=== PATIENT | female | born 1930 | race Caucasian/White ===

== ENCOUNTER 2017-01-28 12:11 | Inpatient (IN) | payer MEDICARE, OTHER ==
[2017-01-28] MEDS ORDERED: Ondansetron 4 MG/2 ML SDV IV PRN (13:08)
[2017-01-28] MEDS ORDERED: Acetaminophen 325 MG Tab PO PRN (13:08)
[2017-01-28] MEDS ORDERED: Pantoprazole 40 MG in Sodium Chloride 0.9% 100 ML IV SCH (13:15)
[2017-01-28] MEDS: Sodium Chloride 0.9% 1,000 ML IV SCH (14:37)
[2017-01-28] MEDS: Pantoprazole 40 MG Vial IVPUSH SCH (14:47)
--- NOTE | 2017-01-28 15:58 | PCM.SN ---
- Free Text/Narrative Note: Full consult dictated. plan egd in am.
[2017-01-28] MEDS ORDERED: Acetaminophen 650 MG Tab.ER PO PRN (16:53)
[2017-01-28] MEDS ORDERED: ALPRAZolam 0.25 MG Tab PO PRN (16:53)
--- NOTE | 2017-01-28 16:56 | PCM.HP ---
H&P History of Present Illness - General Date of Service: 01/28/17 Admit Problem/Dx: Admission Diagnosis/Problem Admission Diagnosis/Problem Gastrointestinal hemorrhage Source of Information: Patient, Old Records History Limitations: Reports: No Limitations - History of Present Illness Initial Comments - Free Text/Narative: [id number] female admitted for melena stools. She complains that she seen black stools for about 10 days but today it was bright red mixed with the black stools. Denies feeling weak having chest pain or shortness of breath. She has a history of H. pylori gastritis, upper GI endoscopy in 2013. She had a colonoscopy in 2008, I do not have the results. She denies abdominal pain. She has chronic disease and takes aspirin. She has hypertension stable restless leg syndrome endings at both stable. - Related Data Allergies/Adverse Reactions: Allergies Allergy/AdvReac Type Severity Reaction Status Date / Time Sulfa (Sulfonamide Allergy Nausea and Verified 01/28/17 14:04 Antibiotics) Vomiting cholesterol pill Allergy Muscle Uncoded 08/16/13 07:57 Aches Home Medications: Home Meds ALPRAZolam [Alprazolam] 0.25 mg PO BEDTIME PRN 08/16/13 [History] Acetaminophen [Tylenol Arthritis Pain] 650 mg PO BID PRN 08/16/13 [History] Aspirin [Low Dose Aspirin EC] 81 mg PO DAILY 08/16/13 [History] Losartan [Cozaar] 50 mg PO BID 08/16/13 [History] Oxybutynin 5 mg PO BEDTIME 08/16/13 [History] Propranolol [Inderal LA 24 Hr] 80 mg PO DAILY 08/16/13 [History] Psyllium Seed/Aspartame [Metamucil Powder] 17 gm PO DAILY PRN 08/16/13 [History] Ranitidine [Zantac] 150 mg PO BID 01/28/17 [History] Past Medical History Cardiovascular History: Reports: Bypass, High Cholesterol, Hypertension Other Cardiovascular History: Bypass 1999 Gastrointestinal History: Reports: GERD Genitourinary History: Reports: Urinary Incontinence [employer] History: Reports: Musculoskeletal History: Reports: Arthritis, Other (See Below) Other Musculoskeletal History: Arthritis in knees, suppose to have surgery sometime. Oncologic (Cancer) History: Reports: Breast, Other (See Below) Other Oncologic History: Treated with radiation only. - Infectious Disease History Infectious Disease History: Reports: Other (See Below) Other Infectious Disease History: States she doesn't exactly recall what childhood diseases she had. Denies having had shingles. - Past Surgical History HEENT Surgical History: Reports: Cataract Surgery GI Surgical History: Reports: Appendectomy, Cholecystectomy, Colonoscopy, EGD Female Surgical History: Reports: Hysterectomy Social & Family History - Tobacco Use Smoking Status *Q: Never Smoker Second Hand Smoke Exposure: No - Caffeine Use Caffeine Use: Reports: Tea Other Caffeine Use: States she seldom drinks caffeine. Drinks de-caf coffee and tea on occasion. - Alcohol Use Days Per Week of Alcohol Use: 0 - Recreational Drug Use Recreational Drug Use: No H&P Review of Systems - Review of Systems: Review Of Systems: ROS reveals no pertinent complaints other than HPI. Exam - Exam Exam: See Below - Vital Signs Vital Signs: Last Vital Signs Temp 97.5 F 01/28/17 16:40 Pulse 69 01/28/17 16:40 Resp 20 01/28/17 16:40 BP 143/53 H 01/28/17 16:40 Pulse Ox 99 01/28/17 13:30 Weight: 75.841 kg - Exam General: Alert, Oriented, 4 HEENT: PERRLA, Hearing Intact, Mucosa Moist & [place], Nares Patent, Normal Nasal Septum, Posterior Pharynx Clear, Conjunctiva Clear, EOMI, EACs Clear, TMs Clear Neck: Supple, Trachea Midline, 2 Lungs: Clear to Auscultation, Normal Respiratory Effort Cardiovascular: Regular Rate, Systolic Murmur GI/Abdominal Exam: Normal Bowel Sounds, Soft, Non-Tender, No Organomegaly, No Distention, No Abnormal Bruit, No Mass, Pelvis Stable (Female) Exam: Deferred Rectal (Female) Exam: Deferred Back Exam: Normal Inspection, Full Range of Motion, NT Extremities: Normal Inspection, Normal Range of Motion, Non-Tender, No Pedal Edema, Normal Capillary Refill Skin: Warm, Dry, Intact Neurological: Cranial Nerves Intact, Reflexes Equal Bilateral Neuro Extensive - Mental Status: Alert, Oriented x3, Normal Mood/Affect, Normal Cognition Neuro Extensive - Motor, Sensory, Reflexes: CN II-XII Intact, Normal Gait, Normal Reflexes Psychiatric: Alert, Normal Affect, Normal Mood - Patient Data Lab Results Last 24 hrs: Laboratory Results - last 24 hr 01/28/17 01/28/1717 Range/Units 13:30 13:30 14:55 Hgb 7.0 L D (11.5-15.5) g/dL Hct 20.8 L* D (30.0-51.3) % PT 11.0 (8.7-11.1) INR 1.09 (0.89-1.13) Sodium 143 (135-145) mmol/L Potassium 3.7 (3.5-5.3) mmol/L Chloride 109 (100-110) mmol/L Carbon Dioxide 29 (21-32) mmol/L BUN 25 H (7-18) mg/dL Creatinine 0.8 (0.55-1.02) mg/dL Est Cr Clr Drug Dosing TNP Estimated GFR (MDRD) > 60 (>60) BUN/Creatinine Ratio 31.3 H (9-20) Glucose 160 H (80-116) mg/dL Calcium 8.2 L (8.6-10.2) mg/dL Total Bilirubin 0.2 (0.1-1.3) mg/dL AST 12 (5-25) IU/L ALT 15 (12-36) U/L Alkaline Phosphatase 55 L (56-112) IU/L Total Protein 6.2 (6.0-8.0) g/dL Albumin 3.1 L (3.2-4.6) g/dL Globulin 3.1 g/dL Albumin/Globulin Ratio 1.0 Blood Type Gel Antibody Screen Crossmatch 01/28/17 Range/Units 14:55 Hgb (11.5-15.5) g/dL Hct (30.0-51.3) % PT (8.7-11.1) INR (0.89-1.13) Sodium (135-145) mmol/L Potassium (3.5-5.3) mmol/L Chloride (100-110) mmol/L Carbon Dioxide (21-32) mmol/L BUN (7-18) mg/dL Creatinine (0.55-1.02) mg/dL Est Cr Clr Drug Dosing Estimated GFR (MDRD) (>60) BUN/Creatinine Ratio (9-20) Glucose (80-116) mg/dL Calcium (8.6-10.2) mg/dL Total Bilirubin (0.1-1.3) mg/dL AST (5-25) IU/L ALT (12-36) U/L Alkaline Phosphatase (56-112) IU/L Total Protein (6.0-8.0) g/dL Albumin (3.2-4.6) g/dL Globulin g/dL Albumin/Globulin Ratio Blood Type B POSITIVE Gel Antibody Screen Negative Crossmatch See Detail Result Diagrams: 01/29/17 05:12 01/29/17 05:12 *Q Meaningful Use (ADM) - VTE *Q VTE Criteria *Q: - Stroke *Q Stroke Criteria *Q: - AMI *Q AMI Criteria *Q: - Problem List (1) GERD (gastroesophageal reflux disease) SNOMED Code(s): 370927206 ICD Code: K21.9 - GASTRO-ESOPHAGEAL REFLUX DISEASE WITHOUT ESOPHAGITIS Status: Acute Current Visit: Yes Qualifiers: Esophagitis presence: esophagitis presence not specified Qualified Code(s) : K21.9 - Gastro-esophageal reflux disease without esophagitis (2) BRBPR (bright red blood per rectum) SNOMED Code(s): 867367086 ICD Code: K62.5 - HEMORRHAGE OF ANUS AND RECTUM Status: Acute Current Visit: Yes (3) Anemia SNOMED Code(s): 887553602 ICD Code: D64.9 - ANEMIA, UNSPECIFIED Status: Acute Current Visit: Yes Qualifiers: Anemia type: iron deficiency Iron deficiency anemia type: unspecified iron deficiency Qualified Code(s): D50.9 - Iron deficiency anemia, unspecified (4) HTN (hypertension) SNOMED Code(s): 43681420 ICD Code: I10 - ESSENTIAL (PRIMARY) HYPERTENSION Status: Chronic Current Visit: Yes Qualifiers: Hypertension type: essential hypertension Qualified Code(s): I10 - Essential (primary) hypertension (5) Urinary incontinence SNOMED Code(s): 620800861 ICD Code: R32 - UNSPECIFIED URINARY INCONTINENCE Status: Acute Current Visit: Yes Qualifiers: Urinary Incontinence type: urge incontinence Qualified Code(s): N39.41 - Urge incontinence (6) Palliative care patient SNOMED Code(s): 920907863 ICD Code: Z51.5 - ENCOUNTER FOR PALLIATIVE CARE Status: Acute Current Visit: Yes (7) Heart murmur SNOMED Code(s): 34353729 ICD Code: R01.1 - CARDIAC MURMUR, UNSPECIFIED Status: Chronic Current Visit: Yes (8) RLS (restless legs syndrome) SNOMED Code(s): 53995422 ICD Code: G25.81 - RESTLESS LEGS SYNDROME Status: Acute Current Visit: Yes (9) Anxiety SNOMED Code(s): 51781878 ICD Code: F41.9 - ANXIETY DISORDER, UNSPECIFIED Status: Acute Current Visit: Yes (10) CAD (coronary artery disease) SNOMED Code(s): 99552977 ICD Code: I25.10 - ATHSCL HEART DISEASE OF [place] CORONARY ARTERY W/O ANG PCTRS Status: Acute Current Visit: Yes Qualifiers: Coronary Disease-Associated Artery/Lesion type: solomon artery (11) Encounter for aspirin therapy SNOMED Code(s): 382691302, 831282736 ICD Code: Z79.82 - HALFWAY (CURRENT) USE OF ASPIRIN Status: Acute Current Visit: Yes Problem List Initiated/Reviewed/Updated: Yes Orders Last 24hrs: Active Orders 24 hr Category Date Time Status Patient Status [ADT] Routine ADT 01/28/17 13:08 Active Cardiac Monitoring [RC] CONTINUOUS Care 01/28/17 13:09 Active EKG Documentation Completion [RC] ASDIRECTED Care 01/28/17 15:56 Active Height and Weight [RC] DAILY Care 01/28/17 13:08 Active Intake and Output [RC] QSHIFT Care 01/28/17 13:09 Active Notify Provider Consults [RC] ASDIRECTED Care 01/28/17 13:11 Active Oxygen Therapy [RC] PRN Care 01/28/17 13:05 Inactive Oxygen Therapy [RC] PRN Care 01/28/17 13:08 Active Up ad [place] [RC] ASDIRECTED Care 01/28/17 13:08 Active VTE/DVT Education [RC] Per Unit Routine Care 01/28/17 13:05 Inactive VTE/DVT Education [RC] Per Unit Routine Care 01/28/17 13:08 Active Verify Patient Consent Obtain [RC] ASDIRECTED Care 01/28/17 15:56 Active Vital Signs [RC] Q4H Care 01/28/17 13:05 Inactive Vital Signs [RC] Q4H Care 01/28/17 13:08 Active Consult to Physician [CONS] Routine Cons 01/28/17 13:08 Ordered Clear Liquid Diet [DIET] Diet 01/28/17 Lunch Active NPO After Midnight [Nothing per Oral After Midnight Diet 01/28/17 Dinner Active Diet] [DIET] BASIC METABOLIC PANEL,BMP [CHEM] AM Lab 01/29/17 05:11 Ordered CBC WITH AUTO DIFF [HEME] AM Lab 01/29/17 05:11 Ordered HEMOGLOBIN/HEMATOCRIT,HH [HEME] Q4H Lab 01/28/17 21:15 Ordered HEMOGLOBIN/HEMATOCRIT,HH [HEME] Q4H Lab 01/29/17 01:15 Ordered HEMOGLOBIN/HEMATOCRIT,HH [HEME] Q4H Lab 01/29/17 05:15 Ordered RED BLOOD CELLS LP [BBK] Routine Lab 01/28/17 14:55 Results TYPE AND SCREEN [BBK] Routine Lab 01/28/17 14:55 Results ALPRAZolam [Xanax] Med 01/28/17 16:53 Ordered 0.25 mg PO BEDTIME PRN Acetaminophen [Tylenol Arthritis Pain] Med 01/28/17 16:53 Ordered 650 mg PO BID PRN Acetaminophen [Tylenol] Med 01/28/17 13:08 Active 650 mg PO Q4H PRN Losartan [Cozaar] Med 01/28/17 21:00 Ordered 50 mg PO BID Ondansetron [Zofran] Med 01/28/17 13:08 Active 4 mg IV Q4H PRN Oxybutynin Med 01/28/17 21:00 Ordered 5 mg PO BEDTIME Pantoprazole [ProTONIX IV] Med 01/28/17 13:45 Active 40 mg IVPUSH Q24H Propranolol [Inderal LA] Med 01/28/17 17:00 Ordered 80 mg PO DAILY Ranitidine [Zantac] Med 01/28/17 21:00 Ordered 150 mg PO BID Sodium Chloride 0.9% [Normal Saline] 1,000 ml Med 01/28/17 13:15 Active IV ASDIRECTED Sodium Chloride 0.9% [Saline Flush] Med 01/28/17 13:08 Active 10 ml FLUSH ASDIRECTED PRN Peripheral IV Insertion Adult [OM.PC] Routine Oth 01/28/17 13:08 Ordered Sequential Compression Device [OM.PC] Per Unit Routine Oth 01/28/17 13:09 Ordered Resuscitation Status Routine Resus Stat 01/28/17 13:08 Ordered EKG 12 Lead [EK] Routine Ther 01/28/17 15:56 Ordered Medication Orders Acetaminophen (Tylenol) 650 mg PO Q4H PRN PRN Reason: Pain (Mild 1-3)/fever Sodium Chloride (Normal Saline) 1,000 mls @ 125 mls/hr IV ASDIRECTED [facility] Last Admin: 01/28/17 14:37 Dose: 125 mls/hr Ondansetron HCl (Zofran) 4 mg IV Q4H PRN PRN Reason: Nausea/Vomiting Pantoprazole Sodium (Protonix Iv) 40 mg IVPUSH Q24H [facility] Last Admin: 01/28/17 14:47 Dose: 40 mg Sodium Chloride (Saline Flush) 10 ml FLUSH ASDIRECTED PRN PRN Reason: Keep Vein Open Assessment/Plan Comment:: Admit patient, on admission hemoglobin to 7.7. Baseline has been 10.2. Dr. Tatum was consulted. We'll replace the blood with blood products 2 units PRBCs. She is also on a PPI .I have discontinued aspirin. I believe that Dr. Tatum be doing an EGD tomorrow morning. We'll repeat CBC at that time as well.
[2017-01-28] MEDS: Propranolol 80 MG Cap.ER PO SCH (17:16)
[2017-01-28] MEDS ORDERED: Famotidine 20 MG Tab ONE (19:55)
[2017-01-28] MEDS: Oxybutynin 5 MG Tab PO SCH (20:00)
[2017-01-28] MEDS: Losartan 50 MG Tab PO SCH (20:00)
[2017-01-28] MEDS: Famotidine 10 MG Tab PO SCH (20:05)
--- NOTE | 2017-01-28 21:40 | CONS ---
DATE OF CONSULTATION: 01/28/2017 This is being done at the written request of Dr. Philippe Dodd. CHIEF COMPLAINT: Anemia. HISTORY OF PRESENT ILLNESS: This is an 86-year-old white female, who was admitted this morning. She had approximately week-long history of black stools. She denies any significant abdominal pain or emesis. Her bowels have been black. Last night, she noted some blood tinge to the water with continued black stools. She has taken several doses of milk of magnesia. However, the black stool started prior to her taking the MOM. She is hemodynamically stable and I was asked to evaluate her for possibility of possible endoscopic evaluation. Her last colonoscopy was in 2008 and her last upper endoscopy was done in 2013 and she was noted to have some erosive gastritis at that time. SOCIAL HISTORY: The patient is . She does not smoke. She does not drink. FAMILY HISTORY: Significant for colorectal cancer and pancreatic cancer. PAST MEDICAL HISTORY: Significant for arthritis, hyperlipidemia, hypertension, coronary artery disease, restless legs syndrome, urge incontinence, and anxiety. Other medical problems include anxiety, iron deficiency anemia, gastroesophageal reflux disease, and history of Helicobacter pylori gastritis in the past. MEDICATIONS: Include: 1. Ditropan 5 mg in the evening. 2. Xanax 0.5 mg one half tablet at bedtime as needed. 3. Zantac 150 mg 2 times a day. 4. Inderal 80 mg one time per day. 5. Losartan 50 mg 2 times a day. 6. Baby aspirin 162 mg daily. 7. Tylenol 65 mg 2 times a day as needed. PAST SURGICAL HISTORY: Significant for cataract extraction, CABG x3, cholecystectomy, hysterectomy, colonoscopy, and upper endoscopy. REVIEW OF SYSTEMS: CONSTITUTIONAL: The patient denies any change in appetite, generalized symptoms. HEENT: Denies any difficulty swallowing, ringing in her ears, hearing loss, nasal congestion, runny nose, or voice change. Eyes, discussed some new glasses, otherwise no significant issues. RESPIRATORY: No significant issues. CARDIAC: Denies any chest pain, irregular heartbeat. ABDOMEN: With the exception of her nausea and black stools, denies any other issues. : Denies any issues. MUSCULOSKELETAL: Some occasional back discomfort. SKIN: Negative. NEUROLOGIC: Negative. PHYSICAL EXAMINATION: GENERAL: This is a well-developed and well-nourished white female, appearing in no acute distress. HEENT: She is normocephalic, atraumatic. Pupils are equal and reactive bilaterally. TMs are clear bilaterally. Oropharynx is clear. LUNGS: Clear to auscultation. HEART: Regular rate and rhythm. Cardiac exam reveals a systolic ejection murmur. ABDOMEN: Soft and nontender. LABORATORY DATA: Hemoglobin and hematocrit of 7.0 and 20.8. PT and INR are negative. Serum chemistries are notable for BUN of 25, glucose of 160, and calcium of 8.2. Alkaline phosphatase of 55 and albumin of 3.1. ASSESSMENT: Given her past history of reflux disease as well as Helicobacter pylori gastroduodenitis and nonerosive gastritis on her esophagogastroduodenoscopy, this appears to be upper gastrointestinal bleed. PLAN: Upper endoscopy tomorrow. Procedure and risks explained to the patient to include bleeding, perforation, infection. I had a long discussion with both her and her as well as her daughter. /[id number] /MODL
[2017-01-29] MEDS: Sodium Chloride 0.9% 1,000 ML IV SCH ×3 (06:00→23:00)
--- NOTE | 2017-01-29 09:14 | PCM.PN ---
- General Info Date of Service: 01/29/17 Subjective Update: Patient complains of back pain mostly from laying down in bed. Described it as soreness. She had 3 stools or black, with red streaks of blood this morning. No abdominal pain no nausea vomiting. Functional Status: Reports: New Symptoms (back pain). Denies: Pain Controlled - Patient Data Vitals - Most Recent: Last Vital Signs Temp 96.6 F 01/29/17 04:16 Pulse 66 01/28/17 22:39 Resp 18 01/29/17 04:16 BP 141/64 H 01/29/17 04:16 Pulse Ox 96 01/29/17 04:16 Weight - Most Recent: 75.841 kg I&O - Last 24 Hours: Intake & Output 01/28/17 01/29/17 01/29/17 22:59 06:59 14:59 Intake Total 715 881 Output Total 400 750 Balance 315 131 Lab Results Last 24 Hours: Laboratory Results - last 24 hr 01/28/17 01/28/17 01/28/17 Range/Units 13:30 13:30 14:55 WBC (4.5-12.0) X10-3/uL RBC (3.23-5.20) x10(6)uL Hgb 7.0 L D (11.5-15.5) g/dL Hct 20.8 L* D (30.0-51.3) % MCV (80-96) fL MCH (27.7-33.6) pg MCHC (32.2-35.4) g/dL RDW (11.5-15.5) % Plt Count (125-369) X10(3)uL MPV (7.4-10.4) fL Neut % (Auto) (46-82) % Lymph % (Auto) (13-37) % [place] % (Auto) (4-12) % Eos % (Auto) (1.0-5.0) % Baso % (Auto) (0-2) % Neut # (Auto) (1.6-8.3) # Lymph # (Auto) (0.6-5.0) # [place] # (Auto) (0.0-1.3) # Eos # (Auto) (0.0-0.8) # Baso # (Auto) (0.0-0.2) # PT 11.0 (8.7-11.1) INR 1.09 (0.89-1.13) Sodium 143 (135-145) mmol/L Potassium 3.7 (3.5-5.3) mmol/L Chloride 109 (100-110) mmol/L Carbon Dioxide 29 (21-32) mmol/L BUN 25 H (7-18) mg/dL Creatinine 0.8 (0.55-1.02) mg/dL Est Cr Clr Drug Dosing TNP Estimated GFR (MDRD) > 60 (>60) BUN/Creatinine Ratio 31.3 H (9-20) Glucose 160 H (80-116) mg/dL Calcium 8.2 L (8.6-10.2) mg/dL Total Bilirubin 0.2 (0.1-1.3) mg/dL AST 12 (5-25) IU/L ALT 15 (12-36) U/L Alkaline Phosphatase 55 L (56-112) IU/L Total Protein 6.2 (6.0-8.0) g/dL Albumin 3.1 L (3.2-4.6) g/dL Globulin 3.1 g/dL Albumin/Globulin Ratio 1.0 Blood Type Gel Antibody Screen Crossmatch 01/28/17 01/28/17 01/29/17 Range/Units 14:55 23:40 05:12 WBC 5.4 (4.5-12.0) X10-3/uL RBC 3.06 L (3.23-5.20) x10(6)uL Hgb 9.5 L 10.0 L (11.5-15.5) g/dL Hct 27.7 L 28.9 L (30.0-51.3) % MCV 94.6 (80-96) fL MCH 32.6 (27.7-33.6) pg MCHC 34.4 (32.2-35.4) g/dL RDW 17.9 H (11.5-15.5) % Plt Count 176 (125-369) X10(3)uL MPV 9.1 (7.4-10.4) fL Neut % (Auto) 53.2 (46-82) % Lymph % (Auto) 36.0 (13-37) % [place] % (Auto) 8.1 (4-12) % Eos % (Auto) 2 (1.0-5.0) % Baso % (Auto) 0 (0-2) % Neut # (Auto) 2.9 (1.6-8.3) # Lymph # (Auto) 2.0 (0.6-5.0) # [place] # (Auto) 0.4 (0.0-1.3) # Eos # (Auto) 0.1 (0.0-0.8) # Baso # (Auto) 0.0 (0.0-0.2) # PT (8.7-11.1) INR (0.89-1.13) Sodium (135-145) mmol/L Potassium (3.5-5.3) mmol/L Chloride (100-110) mmol/L Carbon Dioxide (21-32) mmol/L BUN (7-18) mg/dL Creatinine (0.55-1.02) mg/dL Est Cr Clr Drug Dosing Estimated GFR (MDRD) (>60) BUN/Creatinine Ratio (9-20) Glucose (80-116) mg/dL Calcium (8.6-10.2) mg/dL Total Bilirubin (0.1-1.3) mg/dL AST (5-25) IU/L ALT (12-36) U/L Alkaline Phosphatase (56-112) IU/L Total Protein (6.0-8.0) g/dL Albumin (3.2-4.6) g/dL Globulin g/dL Albumin/Globulin Ratio Blood Type B POSITIVE Gel Antibody Screen Negative Crossmatch See Detail 01/29/17 Range/Units 05:12 WBC (4.5-12.0) X10-3/uL RBC (3.23-5.20) x10(6)uL Hgb (11.5-15.5) g/dL Hct (30.0-51.3) % MCV (80-96) fL MCH (27.7-33.6) pg MCHC (32.2-35.4) g/dL RDW (11.5-15.5) % Plt Count (125-369) X10(3)uL MPV (7.4-10.4) fL Neut % (Auto) (46-82) % Lymph % (Auto) (13-37) % [place] % (Auto) (4-12) % Eos % (Auto) (1.0-5.0) % Baso % (Auto) (0-2) % Neut # (Auto) (1.6-8.3) # Lymph # (Auto) (0.6-5.0) # [place] # (Auto) (0.0-1.3) # Eos # (Auto) (0.0-0.8) # Baso # (Auto) (0.0-0.2) # PT (8.7-11.1) INR (0.89-1.13) Sodium 145 (135-145) mmol/L Potassium 3.6 (3.5-5.3) mmol/L Chloride 112 H (100-110) mmol/L Carbon Dioxide 24 (21-32) mmol/L BUN 17 (7-18) mg/dL Creatinine 0.7 (0.55-1.02) mg/dL Est Cr Clr Drug Dosing 43.94 Estimated GFR (MDRD) > 60 (>60) BUN/Creatinine Ratio 24.3 H (9-20) Glucose 109 (80-116) mg/dL Calcium 8.4 L (8.6-10.2) mg/dL Total Bilirubin (0.1-1.3) mg/dL AST (5-25) IU/L ALT (12-36) U/L Alkaline Phosphatase (56-112) IU/L Total Protein (6.0-8.0) g/dL Albumin (3.2-4.6) g/dL Globulin g/dL Albumin/Globulin Ratio Blood Type Gel Antibody Screen Crossmatch Med Orders - Current: Current Medications Acetaminophen (Tylenol) 650 mg PO Q4H PRN PRN Reason: Pain (Mild 1-3)/fever Acetaminophen (Tylenol Arthritis Pain) 650 mg PO BID PRN PRN Reason: Pain Alprazolam (Xanax) 0.25 mg PO BEDTIME PRN PRN Reason: Anxiety Famotidine (Pepcid) 10 mg PO BID [facility] Last Admin: 01/28/17 20:05 Dose: 10 mg Sodium Chloride (Normal Saline) 1,000 mls @ 125 mls/hr IV ASDIRECTED [facility] Last Admin: 01/29/17 06:00 Dose: 125 mls/hr Losartan Potassium (Cozaar) 50 mg PO BID [facility] Last Admin: 01/28/17 20:00 Dose: 50 mg Ondansetron HCl (Zofran) 4 mg IV Q4H PRN PRN Reason: Nausea/Vomiting Oxybutynin Chloride (Oxybutynin) 5 mg PO BEDTIME [facility] Last Admin: 01/28/17 20:00 Dose: 5 mg Pantoprazole Sodium (Protonix Iv) 40 mg IVPUSH Q24H [facility] Last Admin: 01/28/17 14:47 Dose: 40 mg Propranolol HCl (Inderal La) 80 mg PO DAILY [facility] Last Admin: 01/28/17 17:16 Dose: 80 mg Sodium Chloride (Saline Flush) 10 ml FLUSH ASDIRECTED PRN PRN Reason: Keep Vein Open Discontinued Medications Famotidine (Pepcid) Confirm Administered Dose 20 mg .ROUTE .STLaserLeap-MED ONE Stop: 01/28/17 19:56 Last Admin: 01/28/17 20:13 Dose: Not Given - Exam Quality Assessment: No: Supplemental Oxygen General: Alert, Oriented HEENT: Pupils Equal, Pupils Reactive, EOMI, Mucous Membr. Moist/[place] Lungs: Clear to Auscultation, Normal Respiratory Effort Cardiovascular: Regular Rhythm, Murmurs - Problem List & Annotations (1) GERD (gastroesophageal reflux disease) SNOMED Code(s): 885181056 Code(s): K21.9 - GASTRO-ESOPHAGEAL REFLUX DISEASE WITHOUT ESOPHAGITIS Status: Acute Current Visit: Yes Qualifiers: Esophagitis presence: esophagitis presence not specified Qualified Code(s) : K21.9 - Gastro-esophageal reflux disease without esophagitis (2) BRBPR (bright red blood per rectum) SNOMED Code(s): 480046719 Code(s): K62.5 - HEMORRHAGE OF ANUS AND RECTUM Status: Acute Current Visit: Yes (3) Anemia SNOMED Code(s): 875201265 Code(s): D64.9 - ANEMIA, UNSPECIFIED Status: Acute Current Visit: Yes Qualifiers: Anemia type: iron deficiency Iron deficiency anemia type: unspecified iron deficiency Qualified Code(s): D50.9 - Iron deficiency anemia, unspecified (4) HTN (hypertension) SNOMED Code(s): 61544824 Code(s): I10 - ESSENTIAL (PRIMARY) HYPERTENSION Status: Chronic Current Visit: Yes Qualifiers: Hypertension type: essential hypertension Qualified Code(s): I10 - Essential (primary) hypertension (5) Urinary incontinence SNOMED Code(s): 168182845 Code(s): R32 - UNSPECIFIED URINARY INCONTINENCE Status: Acute Current Visit: Yes Qualifiers: Urinary Incontinence type: urge incontinence Qualified Code(s): N39.41 - Urge incontinence (6) Palliative care patient SNOMED Code(s): 522588829 Code(s): Z51.5 - ENCOUNTER FOR PALLIATIVE CARE Status: Acute Current Visit: Yes (7) Heart murmur SNOMED Code(s): 14440684 Code(s): R01.1 - CARDIAC MURMUR, UNSPECIFIED Status: Chronic Current Visit: Yes (8) RLS (restless legs syndrome) SNOMED Code(s): 60963056 Code(s): G25.81 - RESTLESS LEGS SYNDROME Status: Acute Current Visit: Yes (9) Anxiety SNOMED Code(s): 60145945 Code(s): F41.9 - ANXIETY DISORDER, UNSPECIFIED Status: Acute Current Visit: Yes (10) CAD (coronary artery disease) SNOMED Code(s): 47930990 Code(s): I25.10 - ATHSCL HEART DISEASE OF [place] CORONARY ARTERY W/O ANG PCTRS Status: Acute Current Visit: Yes Qualifiers: Coronary Disease-Associated Artery/Lesion type: [place] artery (11) Encounter for aspirin therapy SNOMED Code(s): 508279037, 579950632 Code(s): Z79.82 - HAND TUBE BENDER (CURRENT) USE OF ASPIRIN Status: Acute Current Visit: Yes (12) Back pain SNOMED Code(s): 029333787 Code(s): M54.9 - DORSALGIA, UNSPECIFIED Status: Acute Current Visit: Yes Qualifiers: Chronicity: acute Back pain laterality: midline - Problem List Review Problem List Initiated/Reviewed/Updated: Yes - My Orders Last 24 Hours: My Active Orders 01/28/17 16:53 ALPRAZolam [Xanax] 0.25 mg PO BEDTIME PRN Acetaminophen [Tylenol Arthritis Pain] 650 mg PO BID PRN 01/28/17 17:00 Propranolol [Inderal LA] 80 mg PO DAILY 01/28/17 21:00 Famotidine [Pepcid] 10 mg PO BID Losartan [Cozaar] 50 mg PO BID Oxybutynin 5 mg PO BEDTIME 01/30/17 05:11 CBC WITH AUTO DIFF [HEME] AM COMPREHENSIVE METABOLIC PN,CMP [CHEM] AM - Plan Plan:: Hemoglobin is up to 10.2 after 2 units. She hasn't upper GI study this morning. Continue IV Crystalloids for now, nothing by mouth. She is on IV Protonix. Have discontinued aspirin. She has a history of H. pylori gastritis, had a colonoscopy 2008 of which the results are still unavailable. Back pain seems to be getting better and will use Tylenol only as needed after the procedure. We' ll plan to do a CBC and a basic profile tomorrow morning for follow-up possibly discharge then. I appreciate the consultation from Dr. Tatum
[2017-01-29] MEDS ORDERED: Lidocaine 2% 100 MG/5 ML Syringe IVPUSH ONE (10:15)
[2017-01-29] MEDS ORDERED: Propofol 200 MG/20 ML SDV IV ONE (10:15)
--- NOTE | 2017-01-29 10:43 | PCM.OPNOTE ---
- General Post-Op/Procedure Note Date of Surgery/Procedure: 01/29/17 Operative Procedure(s): egd with bx Findings: atrophic gastritis esophagitis Pre Op Diagnosis: gi bleed Post-Op Diagnosis: hiatal hernia. duodenal diverticulum. atrophic gastritis. esophagitis Anesthesia Technique: [facility] [place] Primary Surgeon: Ricardo Tatum Anesthesia Provider: Armen Le Pathology: stomach and distal esophagus Condition: Good Free Text/Narrative:: Intake & Output see dictation
--- NOTE | 2017-01-29 11:19 | OR ---
DATE OF OPERATION: 01/29/2017 SURGEON: Ricardo Tatum MD PROCEDURE PERFORMED: Esophagogastroduodenoscopy with cold forceps biopsy. PREOPERATIVE DIAGNOSIS: Blood in stools. POSTOPERATIVE DIAGNOSES: Atrophic gastritis and esophagitis. INDICATIONS FOR PROCEDURE: This is an 86-year-old white female, who was admitted yesterday with a low hemoglobin. The patient has had a history of black stools, was offered and accepted an EGD. DESCRIPTION OF PROCEDURE: After an excellent IV sedation was administered, the bite-block was inserted. The flexible endoscope was passed without difficulty down the patient's esophagus into the stomach. The stomach was insufflated. The scope was passed through the pylorus to the second portion of the duodenum and slowly withdrawn. The following findings were noted. The duodenum demonstrates duodenal diverticulum. Stomach, small hiatal hernia was noted. Atrophic gastritis was noted throughout. Biopsies were taken. Distal esophagus evidence suggestive of esophagitis. This was at the GE junction. Remainder of the esophageal exam was unremarkable. Stomach was deflated. The scope was removed. The patient tolerated the procedure well, and was taken to recovery room in good condition. /[id number] /MODL
[2017-01-29] MEDS: Famotidine 10 MG Tab PO SCH ×2 (12:32→21:59)
[2017-01-29] MEDS: Losartan 50 MG Tab PO SCH ×2 (12:32→21:59)
[2017-01-29] MEDS: Propranolol 80 MG Cap.ER PO SCH (12:33)
[2017-01-29] MEDS: Pantoprazole 40 MG Vial IVPUSH SCH (14:07)
[2017-01-29] MEDS ORDERED: Pantoprazole 8 MG in Sodium Chloride 0.9% 100 ML IV SCH (20:45)
[2017-01-29] MEDS: Oxybutynin 5 MG Tab PO SCH (21:59)
[2017-01-30] MEDS: Sodium Chloride 0.9% 10 ML Syringe FLUSH PRN ×2 (03:34→06:49)
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
--- NOTE | 2017-01-30 10:42 | PCM.SURGPN ---
- General Info Date of Service: 01/30/17 Functional Status: Reports: Other (several bloody bowel movements. ) - Review of Systems Pulmonary: Reports: No Symptoms Cardiovascular: Reports: No Symptoms Gastrointestinal: Reports: Hematochezia - Patient Data Vitals - Most Recent: Last Vital Signs Temp 36.2 C 01/30/17 03:10 Pulse 69 01/30/17 03:10 Resp 18 01/30/17 06:45 BP 177/64 H 01/30/17 06:45 Pulse Ox 97 01/30/17 06:45 Weight - Most Recent: 76.476 kg I&O - Last 24 Hours: Intake & Output 01/29/17 01/30/17 01/30/17 22:59 06:59 14:59 Intake Total 1565 768 Output Total 675 1150 Balance 890 -382 Lab Results Last 24 Hrs: Laboratory Results - last 24 hr 01/28/17 01/29/17 01/29/17 Range/Units 14:55 11:10 20:25 WBC 5.2 (4.5-12.0) X10-3/uL RBC 3.21 L (3.23-5.20) x10(6)uL Hgb 9.9 L (11.5-15.5) g/dL Hct 30.0 (30.0-51.3) % MCV 93.3 (80-96) fL MCH 30.7 (27.7-33.6) pg MCHC 32.9 (32.2-35.4) g/dL RDW 18.4 H (11.5-15.5) % Plt Count 212 (125-369) X10(3)uL MPV 8.5 (7.4-10.4) fL Neut % (Auto) 64.9 (46-82) % Lymph % (Auto) 23.8 (13-37) % [place] % (Auto) 9.0 (4-12) % Eos % (Auto) 1 (1.0-5.0) % Baso % (Auto) 1 (0-2) % Neut # (Auto) 3.4 (1.6-8.3) # Lymph # (Auto) 1.2 (0.6-5.0) # [place] # (Auto) 0.5 (0.0-1.3) # Eos # (Auto) 0.1 (0.0-0.8) # Baso # (Auto) 0.0 (0.0-0.2) # Sodium (135-145) mmol/L Potassium (3.5-5.3) mmol/L Chloride (100-110) mmol/L Carbon Dioxide (21-32) mmol/L BUN (7-18) mg/dL Creatinine (0.55-1.02) mg/dL Est Cr Clr Drug Dosing mL/min Estimated GFR (MDRD) (>60) BUN/Creatinine Ratio (9-20) Glucose (80-116) mg/dL Calcium (8.6-10.2) mg/dL Total Bilirubin (0.1-1.3) mg/dL AST (5-25) IU/L ALT (12-36) U/L Alkaline Phosphatase (56-112) IU/L Total Protein (6.0-8.0) g/dL Albumin (3.2-4.6) g/dL Globulin g/dL Albumin/Globulin Ratio Vitamin B12 1988 H (193-986) pg/mL Blood Type B POSITIVE Gel Antibody Screen Negative Crossmatch See Detail 01/30/17 01/30/17 Range/Units 06:10 06:10 WBC 5.4 (4.5-12.0) X10-3/uL RBC 2.77 L (3.23-5.20) x10(6)uL Hgb 8.6 L (11.5-15.5) g/dL Hct 25.8 L (30.0-51.3) % MCV 93.0 (80-96) fL MCH 31.1 (27.7-33.6) pg MCHC 33.4 (32.2-35.4) g/dL RDW 17.9 H (11.5-15.5) % Plt Count 181 (125-369) X10(3)uL MPV 8.6 (7.4-10.4) fL Neut % (Auto) 57.6 (46-82) % Lymph % (Auto) 29.8 (13-37) % [place] % (Auto) 9.1 (4-12) % Eos % (Auto) 2 (1.0-5.0) % Baso % (Auto) 1 (0-2) % Neut # (Auto) 3.1 (1.6-8.3) # Lymph # (Auto) 1.6 (0.6-5.0) # [place] # (Auto) 0.5 (0.0-1.3) # Eos # (Auto) 0.1 (0.0-0.8) # Baso # (Auto) 0.1 (0.0-0.2) # Sodium 145 (135-145) mmol/L Potassium 3.5 (3.5-5.3) mmol/L Chloride 112 H (100-110) mmol/L Carbon Dioxide 24 (21-32) mmol/L BUN 10 (7-18) mg/dL Creatinine 0.7 (0.55-1.02) mg/dL Est Cr Clr Drug Dosing 43.94 mL/min Estimated GFR (MDRD) > 60 (>60) BUN/Creatinine Ratio 14.3 (9-20) Glucose 110 (80-116) mg/dL Calcium 7.8 L (8.6-10.2) mg/dL Total Bilirubin 0.4 (0.1-1.3) mg/dL AST 17 D (5-25) IU/L ALT 10 L D (12-36) U/L Alkaline Phosphatase 47 L (56-112) IU/L Total Protein 5.5 L (6.0-8.0) g/dL Albumin 2.6 L (3.2-4.6) g/dL Globulin 2.9 g/dL Albumin/Globulin Ratio 0.9 Vitamin B12 (193-986) pg/mL Blood Type Gel Antibody Screen Crossmatch Med Orders - Current: Current Medications Acetaminophen (Tylenol) 650 mg PO Q4H PRN PRN Reason: Pain (Mild 1-3)/fever Acetaminophen (Tylenol Arthritis Pain) 650 mg PO BID PRN PRN Reason: Pain Alprazolam (Xanax) 0.25 mg PO BEDTIME PRN PRN Reason: Anxiety Famotidine (Pepcid) 10 mg PO BID [facility] Last Admin: 01/29/17 21:59 Dose: 10 mg Sodium Chloride (Normal Saline) 1,000 mls @ 75 mls/hr IV ASDIRECTED [facility] Last Admin: 01/29/17 23:00 Dose: 125 mls/hr Losartan Potassium (Cozaar) 50 mg PO BID [facility] Last Admin: 01/29/17 21:59 Dose: 50 mg Ondansetron HCl (Zofran) 4 mg IV Q4H PRN PRN Reason: Nausea/Vomiting Last Admin: 01/30/17 06:49 Dose: 4 mg Oxybutynin Chloride (Oxybutynin) 5 mg PO BEDTIME [facility] Last Admin: 01/29/17 21:59 Dose: 5 mg Pantoprazole Sodium (Protonix) 40 mg PO DAILY [facility] Polyethylene Glycol (Miralax) 238 gm PO ONETIME ONE Stop: 01/30/17 12:01 Propranolol HCl (Inderal La) 80 mg PO DAILY [facility] Last Admin: 01/29/17 12:33 Dose: 80 mg Sodium Chloride (Saline Flush) 10 ml FLUSH ASDIRECTED PRN PRN Reason: Keep Vein Open Last Admin: 01/30/17 06:49 Dose: 10 ml Zolpidem Tartrate (Ambien) 5 mg PO BEDTIME [facility] Discontinued Medications Famotidine (Pepcid) Confirm Administered Dose 20 mg .ROUTE .STK-MED ONE Stop: 01/28/17 19:56 Last Admin: 01/28/17 20:13 Dose: Not Given Pantoprazole Sodium 8 mg/ (Sodium Chloride) 100 mls @ 8.5 mls/hr IV ASDIRECTED [facility] Last Admin: 01/29/17 21:02 Dose: 8.5 mls/hr Pantoprazole Sodium (Protonix Iv) 40 mg IVPUSH Q24H [facility] Last Admin: 01/29/17 14:07 Dose: 40 mg - Exam Lungs: Clear to Auscultation, Normal Respiratory Effort Cardiovascular: Regular Rate, Regular Rhythm GI/Abdominal Exam: Normal Bowel Sounds, Soft, Non-Tender - Problem List & Annotations (1) Anemia SNOMED Code(s): 881934934 Code(s): D64.9 - ANEMIA, UNSPECIFIED Status: Acute Current Visit: Yes Qualifiers: Anemia type: iron deficiency Iron deficiency anemia type: unspecified iron deficiency Qualified Code(s): D50.9 - Iron deficiency anemia, unspecified (2) BRBPR (bright red blood per rectum) SNOMED Code(s): 259006349 Code(s): K62.5 - HEMORRHAGE OF ANUS AND RECTUM Status: Acute Current Visit: Yes - Problem List Review Problem List Initiated/Reviewed/Updated: Yes - My Orders Last 24 Hours: Active Orders 24 hr Category Date Time Status Verify Patient Consent Obtain [RC] ASDIRECTED Care 01/30/17 10:38 Ordered Clear Liquid Diet [DIET] Diet 01/30/17 Breakfast Active NPO After Midnight [Nothing per Oral After Midnight Diet 01/30/17 Dinner Ordered Diet] [DIET] FOLATE [REF] Routine Lab 01/29/17 11:10 Received METHYLMALONIC ACID,SERUM QUANT [REF] Routine Lab 01/29/17 11:10 Received Pantoprazole [ProTONIX] Med 01/30/17 10:15 Active 40 mg PO DAILY Polyethylene Glycol 3350 [MiraLAX] Med 01/30/17 12:00 Once 238 gm PO ONETIME ONE Zolpidem [Ambien] Med 01/30/17 21:00 Ordered 5 mg PO BEDTIME Medication Orders Acetaminophen (Tylenol) 650 mg PO Q4H PRN PRN Reason: Pain (Mild 1-3)/fever Acetaminophen (Tylenol Arthritis Pain) 650 mg PO BID PRN PRN Reason: Pain Alprazolam (Xanax) 0.25 mg PO BEDTIME PRN PRN Reason: Anxiety Famotidine (Pepcid) 10 mg PO BID [facility] Last Admin: 01/29/17 21:59 Dose: 10 mg Admin: 01/29/17 12:32 Dose: 10 mg Admin: 01/28/17 20:05 Dose: 10 mg Sodium Chloride (Normal Saline) 1,000 mls @ 75 mls/hr IV ASDIRECTED [facility] Last Admin: 01/29/17 23:00 Dose: 125 mls/hr Infusion: 01/29/17 23:00 Dose: 125 mls/hr Admin: 01/29/17 14:19 Dose: 125 mls/hr Infusion: 01/29/17 14:00 Dose: 125 mls/hr Admin: 01/29/17 06:00 Dose: 125 mls/hr Infusion: 01/28/17 22:37 Dose: 125 mls/hr Admin: 01/28/17 14:37 Dose: 125 mls/hr Losartan Potassium (Cozaar) 50 mg PO BID [facility] Last Admin: 01/29/17 21:59 Dose: 50 mg Admin: 01/29/17 12:32 Dose: 50 mg Admin: 01/28/17 20:00 Dose: 50 mg Ondansetron HCl (Zofran) 4 mg IV Q4H PRN PRN Reason: Nausea/Vomiting Last Admin: 01/30/17 06:49 Dose: 4 mg Oxybutynin Chloride (Oxybutynin) 5 mg PO BEDTIME [facility] Last Admin: 01/29/17 21:59 Dose: 5 mg Admin: 01/28/17 20:00 Dose: 5 mg Pantoprazole Sodium (Protonix) 40 mg PO DAILY [facility] Polyethylene Glycol (Miralax) 238 gm PO ONETIME ONE Stop: 01/30/17 12:01 Propranolol HCl (Inderal La) 80 mg PO DAILY [facility] Last Admin: 01/29/17 12:33 Dose: 80 mg Admin: 01/28/17 17:16 Dose: 80 mg Sodium Chloride (Saline Flush) 10 ml FLUSH ASDIRECTED PRN PRN Reason: Keep Vein Open Last Admin: 01/30/17 06:49 Dose: 10 ml Admin: 01/30/17 03:34 Dose: 10 ml Zolpidem Tartrate (Ambien) 5 mg PO BEDTIME [facility] - Assessment Assessment (Free Text/Narrative):: blood loss is not explained by the egd findings. recommend a c scope - Plan Plan (Free Text/Narrative):: c scope. procedure and risks explained to the pt to include bleeding infection and perforation. she asks us to proceed.
[2017-01-30] MEDS: Famotidine 10 MG Tab PO SCH ×2 (10:54→21:12)
[2017-01-30] MEDS: Pantoprazole 40 MG Tab.CR PO SCH (10:54)
[2017-01-30] MEDS: Losartan 50 MG Tab PO SCH ×2 (10:54→21:11)
[2017-01-30] MEDS: Propranolol 80 MG Cap.ER PO SCH (10:54)
[2017-01-30] MEDS ORDERED: Polyethylene Glycol 3350 Powder 238 GM Bot PO ONE (12:00)
[2017-01-30] MEDS: Sodium Chloride 0.9% 1,000 ML IV SCH (13:14)
[2017-01-30] MEDS ORDERED: Bisacodyl 5 MG Tab PO ONE (16:45)
[2017-01-30] MEDS ORDERED: Zolpidem 5 MG Tab PO SCH (21:00)
[2017-01-30] MEDS: Oxybutynin 5 MG Tab PO SCH (21:13)
[2017-01-31] MEDS: Sodium Chloride 0.9% 1,000 ML IV SCH (02:58)
--- NOTE | 2017-01-31 08:25 | PCM.PN ---
- General Info Date of Service: 01/31/17 Admission Dx/Problem (Free Text): Patient without complaints. She states that she had a lot of BM yesterday because of the prep. She says she will bleeding at first but that dissipated. She denies fevers, chills, abdominal pain, nausea or vomiting. - Patient Data Vitals - Most Recent: Last Vital Signs Temp 98 F 01/31/17 04:00 Pulse 66 01/31/17 08:00 Resp 18 01/31/17 08:00 BP 179/61 H 01/31/17 08:00 Pulse Ox 99 01/31/17 08:00 Weight - Most Recent: 167 lb 8 oz I&O - Last 24 Hours: Intake & Output 01/30/17 01/31/17 01/31/17 22:59 06:59 14:59 Intake Total 761 375 Output Total 2800 600 Balance -9 - Lab Results Last 24 Hours: Laboratory Results - last 24 hr 01/29/17 01/30/17 Range/Units 11:10 20:10 WBC 6.2 (4.5-12.0) X10-3/uL RBC 3.28 (3.23-5.20) x10(6)uL Hgb 10.2 L (11.5-15.5) g/dL Hct 30.7 (30.0-51.3) % MCV 93.4 (80-96) fL MCH 30.9 (27.7-33.6) pg MCHC 33.1 (32.2-35.4) g/dL RDW 17.9 H (11.5-15.5) % Plt Count 226 (125-369) X10(3)uL MPV 8.1 (7.4-10.4) fL Neut % (Auto) 64.9 (46-82) % Lymph % (Auto) 24.4 (13-37) % [place] % (Auto) 8.5 (4-12) % Eos % (Auto) 2 (1.0-5.0) % Baso % (Auto) 1 (0-2) % Neut # (Auto) 4.1 (1.6-8.3) # Lymph # (Auto) 1.5 (0.6-5.0) # [place] # (Auto) 0.5 (0.0-1.3) # Eos # (Auto) 0.1 (0.0-0.8) # Baso # (Auto) 0.0 (0.0-0.2) # Folate >20.0 (4.8-24.2) ng/mL Med Orders - Current: Current Medications Acetaminophen (Tylenol) 650 mg PO Q4H PRN PRN Reason: Pain (Mild 1-3)/fever Acetaminophen (Tylenol Arthritis Pain) 650 mg PO BID PRN PRN Reason: Pain Alprazolam (Xanax) 0.25 mg PO BEDTIME PRN PRN Reason: Anxiety Famotidine (Pepcid) 10 mg PO BID [facility] Last Admin: 01/30/17 21:12 Dose: 10 mg Sodium Chloride (Normal Saline) 1,000 mls @ 75 mls/hr IV ASDIRECTED [facility] Last Admin: 01/31/17 02:58 Dose: 75 mls/hr Losartan Potassium (Cozaar) 50 mg PO BID [facility] Last Admin: 01/30/17 21:11 Dose: 50 mg Ondansetron HCl (Zofran) 4 mg IV Q4H PRN PRN Reason: Nausea/Vomiting Last Admin: 01/30/17 06:49 Dose: 4 mg Oxybutynin Chloride (Oxybutynin) 5 mg PO BEDTIME [facility] Last Admin: 01/30/17 21:13 Dose: 5 mg Pantoprazole Sodium (Protonix) 40 mg PO DAILY [facility] Last Admin: 01/30/17 10:54 Dose: 40 mg Propranolol HCl (Inderal La) 80 mg PO DAILY [facility] Last Admin: 01/30/17 10:54 Dose: 80 mg Sodium Chloride (Saline Flush) 10 ml FLUSH ASDIRECTED PRN PRN Reason: Keep Vein Open Last Admin: 01/30/17 06:49 Dose: 10 ml Zolpidem Tartrate (Ambien) 5 mg PO BEDTIME [facility] Last Admin: 01/30/17 21:13 Dose: 5 mg Discontinued Medications Bisacodyl (Dulcolax) 10 mg PO ONETIME ONE Stop: 01/30/17 16:46 Last Admin: 01/30/17 17:24 Dose: 10 mg Famotidine (Pepcid) Confirm Administered Dose 20 mg .ROUTE .STK-MED ONE Stop: 01/28/17 19:56 Last Admin: 01/28/17 20:13 Dose: Not Given Pantoprazole Sodium 8 mg/ (Sodium Chloride) 100 mls @ 8.5 mls/hr IV ASDIRECTED [facility] Last Admin: 01/29/17 21:02 Dose: 8.5 mls/hr Pantoprazole Sodium (Protonix Iv) 40 mg IVPUSH Q24H [facility] Last Admin: 01/29/17 14:07 Dose: 40 mg Polyethylene Glycol (Miralax) 238 gm PO ONETIME ONE Stop: 01/30/17 12:01 Last Admin: 01/30/17 13:28 Dose: 238 gm - Exam General: Alert, Oriented, Cooperative Lungs: Normal Respiratory Effort GI/Abdominal Exam: Normal Bowel Sounds, Soft, Non-Tender, No Organomegaly, No Distention, No Mass - Problem List & Annotations (1) Gastritis SNOMED Code(s): 8223962 Code(s): K29.70 - GASTRITIS, UNSPECIFIED, WITHOUT BLEEDING Status: Acute Current Visit: Yes (2) Esophagitis SNOMED Code(s): 31803911 Code(s): K20.9 - ESOPHAGITIS, UNSPECIFIED Status: Acute Current Visit: Yes (3) BRBPR (bright red blood per rectum) SNOMED Code(s): 321310017 Code(s): K62.5 - HEMORRHAGE OF ANUS AND RECTUM Status: Acute Current Visit: Yes (4) Palliative care patient SNOMED Code(s): 616132110 Code(s): Z51.5 - ENCOUNTER FOR PALLIATIVE CARE Status: Acute Current Visit: Yes - Problem List Review Problem List Initiated/Reviewed/Updated: Yes - My Orders Last 24 Hours: My Active Orders 01/30/17 10:15 Pantoprazole [ProTONIX] 40 mg PO DAILY - Plan Plan:: 1. Colonoscopy today.
[2017-01-31] MEDS ORDERED: Propofol 200 MG/20 ML SDV IV ONE (08:35)
--- NOTE | 2017-01-31 09:26 | PCM.OPNOTE ---
- General Post-Op/Procedure Note Date of Surgery/Procedure: 01/31/17 Operative Procedure(s): c scope Findings: sigmoid diverticulosis Pre Op Diagnosis: gi bleed Post-Op Diagnosis: sigmoid diverticulosis Anesthesia Technique: MAC Primary Surgeon: Ricardo Tatum Anesthesia Provider: Dimple Urban ( ) Pathology: none Complications: None Condition: Good Free Text/Narrative:: Intake & Output 01/30/17 01/31/17 01/31/17 22:59 06:59 14:59 Intake Total 761 375 Output Total 2800 600 Balance -2091 -265 see dictation Recommend a CT scan with IV and oral contrast. follow up with me after
--- NOTE | 2017-01-31 09:56 | OR ---
DATE OF OPERATION: 01/31/2017 SURGEON: Ricardo Tatum MD PROCEDURE PERFORMED: Colonoscopy. PREOPERATIVE DIAGNOSIS: Gastrointestinal bleed. POSTOPERATIVE DIAGNOSIS: Sigmoid diverticulosis. INDICATIONS FOR PROCEDURE: This is an 86-year-old white female who has had a history of gastrointestinal bleed. She was offered and accepted a colonoscopy as part of her workup. DESCRIPTION OF OPERATION: After an excellent IV sedation was administered, digital rectal exam was performed. No marked abnormality was noted. Flexible colonoscope was inserted and advanced to the cecum without difficulty. The following findings were noted: Ascending colon, unremarkable. Transverse colon, unremarkable. Descending colon, unremarkable. Sigmoid, scattered diverticula, no evidence of diverticular bleed. Rectum and anus, unremarkable. Attempts to intubate the terminal ileum were not successful. Colon was deflated, scope was removed. At this point, we have no explanation for her bleeding. I would recommend a CT scan with IV and oral contrast to work this up, have the patient follow up and see me next later this week. This case was discussed with Philippe Dodd. /[id number] /MODL
--- NOTE | 2017-01-31 10:01 | PCM.SN ---
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 But after she recovers and is able to tolerate food that she can go home. She should have a CT scan of her abdomen and pelvis with IV and oral contrast early next week and then follow-up with him. He'll go home on a proton pump inhibitor, Carafate and iron once a day. Hold nonsteroidal anti-inflammatories.
--- NOTE | 2017-01-31 10:16 | PCM.DCSUM1 ---
Discharge Summary - Hospital Course Free Text/Narrative:: Hospital course-patient was admitted and given 2 units of red blood cells. She was scoped with a EGD this a.m. She was found to have esophagitis and gastritis. She was started on a proton pump inhibitor. Her hemoglobin dropped in spite of no bleeding upper GI and given [address] Tatum evaluated the patient again I felt she should have a colonoscopy. She was having some melena and some bright red rectal bleeding. She was prepped and had some bleeding but that improved. Her hemoglobin on day of discharge was over 10. She had a colonoscopy that was reported by Dr. Tatum is normal. Dr. Tatum felt she could go home on Carafate, proton pump inhibitor holding nonsteroidal anti-inflammatories. He wants to get a CT scan abdomen and pelvis with IV and oral contrast and then see her back in the clinic with a CBC. Brief History: 86-year-old female admitted for melena stools. She complains that she seen black stools for about 10 days but today it was bright red mixed with the black stools. Denies feeling weak having chest pain or shortness of breath. She has a history of H. pylori gastritis, upper GI endoscopy in 2013. She had a colonoscopy in 2008, I do not have the results. She denies abdominal pain. She has chronic disease and takes aspirin. She has hypertension stable restless leg syndrome endings at both stable. - Discharge Data Discharge Date: 01/31/17 Discharge Disposition: Home, Self-Care 01 Condition: Good - Discharge Diagnosis/Problem(s) (1) Gastritis SNOMED Code(s): 7707166 ICD Code: K29.70 - GASTRITIS, UNSPECIFIED, WITHOUT BLEEDING Status: Acute Current Visit: Yes (2) Esophagitis SNOMED Code(s): 02529128 ICD Code: K20.9 - ESOPHAGITIS, UNSPECIFIED Status: Acute Current Visit: Yes (3) BRBPR (bright red blood per rectum) SNOMED Code(s): 665977009 ICD Code: K62.5 - HEMORRHAGE OF ANUS AND RECTUM Status: Acute Current Visit: Yes (4) Palliative care patient SNOMED Code(s): 378897962 ICD Code: Z51.5 - ENCOUNTER FOR PALLIATIVE CARE Status: Acute Current Visit: Yes - Patient Summary/Data Operative Procedure(s) Performed: c scope Consults: Consultations 01/28/17 13:08 Consult to Physician [CONS] Routine Consulting Provider: Ricardo Tatum Courtesy Call Completed to Consulting Physician: Yes - Patient Instructions Diet: Regular Diet as Tolerated Activity: As Tolerated Driving: May Drive Today Showering/Bathing: May Shower Notify Provider of: Increased Pain Other/Special Instructions: 1. Discharge to home. 2. Recheck with Dr. Tatum 3- [address] scan[address] 3[address] scan of the abdomen and pelvis with oral and IV contrast. - Discharge Plan Prescriptions/Med Rec: Ferrous Sulfate 324 mg PO DAILY #30 tablet. Pantoprazole [ProTONIX] 40 mg PO DAILY #30 tab.cr Sucralfate [Carafate] 1 gm PO QIDACANDBED #120 ml Home Medications: Home Meds ALPRAZolam [Alprazolam] 0.25 mg PO BEDTIME PRN 08/16/13 [History] Acetaminophen [Tylenol Arthritis Pain] 650 mg PO BID PRN 08/16/13 [History] Losartan [Cozaar] 50 mg PO BID 08/16/13 [History] Oxybutynin 5 mg PO BEDTIME 08/16/13 [History] Propranolol [Inderal LA] 80 mg PO DAILY 08/16/13 [History] Psyllium Seed/Aspartame [Metamucil Powder] 17 gm PO DAILY PRN 08/16/13 [History] Ranitidine [Zantac] 150 mg PO BID 01/28/17 [History] Ferrous Sulfate 324 mg PO DAILY #30 tablet. 01/31/17 [Rx] Pantoprazole [ProTONIX] 40 mg PO DAILY #30 tab.cr 01/31/17 [Rx] Sucralfate [Carafate] 1 gm PO QIDACANDBED #120 ml 01/31/17 [Rx] - Discharge Summary/Plan Comment DC Time >30 min.: No - Patient Data Vitals - Most Recent: Last Vital Signs Temp 98 F 01/31/17 04:00 Pulse 66 01/31/17 08:00 Resp 18 01/31/17 08:00 BP 179/61 H 01/31/17 08:00 Pulse Ox 99 01/31/17 08:00 Weight - Most Recent: 167 lb 8 oz I&O - Last 24 hours: Intake & Output 01/30/17 01/31/17 01/31/17 22:59 06:59 14:59 Intake Total 761 375 Output Total 2800 600 Balance -2038 Lab Results - Last 24 hrs: Laboratory Results - last 24 hr 01/29/17 01/30/17 Range/Units 11:10 20:10 WBC 6.2 (4.5-12.0) X10-3/uL RBC 3.28 (3.23-5.20) x10(6)uL Hgb 10.2 L (11.5-15.5) g/dL Hct 30.7 (30.0-51.3) % MCV 93.4 (80-96) fL MCH 30.9 (27.7-33.6) pg MCHC 33.1 (32.2-35.4) g/dL RDW 17.9 H (11.5-15.5) % Plt Count 226 (125-369) X10(3)uL MPV 8.1 (7.4-10.4) fL Neut % (Auto) 64.9 (46-82) % Lymph % (Auto) 24.4 (13-37) % [place] % (Auto) 8.5 (4-12) % Eos % (Auto) 2 (1.0-5.0) % Baso % (Auto) 1 (0-2) % Neut # (Auto) 4.1 (1.6-8.3) # Lymph # (Auto) 1.5 (0.6-5.0) # [place] # (Auto) 0.5 (0.0-1.3) # Eos # (Auto) 0.1 (0.0-0.8) # Baso # (Auto) 0.0 (0.0-0.2) # Folate >20.0 (4.8-24.2) ng/mL Med Orders - Current: Current Medications Acetaminophen (Tylenol) 650 mg PO Q4H PRN PRN Reason: Pain (Mild 1-3)/fever Acetaminophen (Tylenol Arthritis Pain) 650 mg PO BID PRN PRN Reason: Pain Alprazolam (Xanax) 0.25 mg PO BEDTIME PRN PRN Reason: Anxiety Famotidine (Pepcid) 10 mg PO BID [facility] Last Admin: 01/30/17 21:12 Dose: 10 mg Sodium Chloride (Normal Saline) 1,000 mls @ 75 mls/hr IV ASDIRECTED [facility] Last Admin: 01/31/17 02:58 Dose: 75 mls/hr Losartan Potassium (Cozaar) 50 mg PO BID [facility] Last Admin: 01/30/17 21:11 Dose: 50 mg Ondansetron HCl (Zofran) 4 mg IV Q4H PRN PRN Reason: Nausea/Vomiting Last Admin: 01/30/17 06:49 Dose: 4 mg Oxybutynin Chloride (Oxybutynin) 5 mg PO BEDTIME [facility] Last Admin: 01/30/17 21:13 Dose: 5 mg Pantoprazole Sodium (Protonix) 40 mg PO DAILY [facility] Last Admin: 01/30/17 10:54 Dose: 40 mg Propranolol HCl (Inderal La) 80 mg PO DAILY [facility] Last Admin: 01/30/17 10:54 Dose: 80 mg Sodium Chloride (Saline Flush) 10 ml FLUSH ASDIRECTED PRN PRN Reason: Keep Vein Open Last Admin: 01/30/17 06:49 Dose: 10 ml Zolpidem Tartrate (Ambien) 5 mg PO BEDTIME [facility] Last Admin: 01/30/17 21:13 Dose: 5 mg Discontinued Medications Bisacodyl (Dulcolax) 10 mg PO ONETIME ONE Stop: 01/30/17 16:46 Last Admin: 01/30/17 17:24 Dose: 10 mg Famotidine (Pepcid) Confirm Administered Dose 20 mg .ROUTE .STK-MED ONE Stop: 01/28/17 19:56 Last Admin: 01/28/17 20:13 Dose: Not Given Pantoprazole Sodium 8 mg/ (Sodium Chloride) 100 mls @ 8.5 mls/hr IV ASDIRECTED [facility] Last Admin: 01/29/17 21:02 Dose: 8.5 mls/hr Pantoprazole Sodium (Protonix Iv) 40 mg IVPUSH Q24H [facility] Last Admin: 01/29/17 14:07 Dose: 40 mg Polyethylene Glycol (Miralax) 238 gm PO ONETIME ONE Stop: 01/30/17 12:01 Last Admin: 01/30/17 13:28 Dose: 238 gm *Q Meaningful Use (DIS) - VTE *Q VTE Criteria *Q: - Stroke *Q Stroke Criteria *Q: - AMI *Q AMI Criteria *Q:
[2017-01-31] MEDS: Propranolol 80 MG Cap.ER PO SCH (13:58)
[2017-01-31] MEDS: Famotidine 10 MG Tab PO SCH (13:58)
[2017-01-31] MEDS: Losartan 50 MG Tab PO SCH (13:58)
[2017-01-31] MEDS: Pantoprazole 40 MG Tab.CR PO SCH (13:59)
== END 2017-01-31 14:25 | disposition home or self-care (01) | DRG 392 ==
LOC: FB.MS 12:48
PROVIDERS: ADMIT Family Medicine; ATTEND Family Medicine
PROC: 30233N1 Transfusion of Nonautologous Red Blood Cells into Peripheral Vein, Percutaneous Approach (ICD-10-PCS; principal; 2017-01-28)
PROC: 0DB68ZX Excision of Stomach, Via Natural or Artificial Opening Endoscopic, Diagnostic (ICD-10-PCS; 2017-01-29)
PROC: 0DJD8ZZ Inspection of Lower Intestinal Tract, Via Natural or Artificial Opening Endoscopic (ICD-10-PCS; 2017-01-31)
DX: K29.70 Gastritis, unspecified, without bleeding (principal); K62.5 Hemorrhage of anus and rectum; K20.9 Esophagitis, unspecified; I25.10 Atherosclerotic heart disease of native coronary artery without angina pectoris; D50.9 Iron deficiency anemia, unspecified; I10 Essential (primary) hypertension; Z51.5 Encounter for palliative care; G25.81 Restless legs syndrome; K21.9 Gastro-esophageal reflux disease without esophagitis; Z95.1 Presence of aortocoronary bypass graft; N39.41 Urge incontinence; R01.1 Cardiac murmur, unspecified; F41.9 Anxiety disorder, unspecified; E78.5 Hyperlipidemia, unspecified; M54.9 Dorsalgia, unspecified; M17.0 Bilateral primary osteoarthritis of knee; Z85.3 Personal history of malignant neoplasm of breast; Z92.3 Personal history of irradiation; Z79.82 Long term (current) use of aspirin; Z88.2 Allergy status to sulfonamides; Z88.8 Allergy status to other drugs, medicaments and biological substances; K44.9 Diaphragmatic hernia without obstruction or gangrene; K57.30 Diverticulosis of large intestine without perforation or abscess without bleeding
CPT/HCPCS: 36415; 36430; 80048; 80053; 82607; 82746; 83921; 85014; 85018; 85025; 85610; 86850; 86900; 86901; 86920; 86922; 88305; 88313; 88342; 93005; A9270-GY; C9113; J2405; J2704; J7030; J7040; J7050; P9016

== ENCOUNTER 2017-10-08 06:36 | Emergency (ER) | payer MEDICARE, OTHER ==
--- NOTE | 2017-10-08 06:49 | EDM.PDOC ---
ED HPI GENERAL MEDICAL PROBLEM - General Stated Complaint: left shoulder pain Time Seen by Provider: 10/08/17 06:36 Source of Information: Reports: Patient, Family () History Limitations: Reports: No Limitations - History of Present Illness INITIAL COMMENTS - FREE TEXT/NARRATIVE: 86 y.o.w.f with CAD, S/P triple CABG 1999, came to the ed after she woke up at 5 am with left shoulder pain, worse with movement. However, pt has still pain at rest, 5/10. Pt received ASA her in the ed and her shoulder pain at rest subsided. Pt has pain at her left shoulder with movement. No N/V/D no diaphoresis. Pt denies trauma. No other acute medical issues. BP 151/51 Pulse 61 O2 sat 99% on RA, RR 14 temp 97.9 Onset: Today Onset Date: 10/08/17 Onset Time: 05:00 Duration: Hour(s):, Heavy (left shoulder) Location: Reports: Chest, Upper Extremity, Left Quality: Reports: Ache, Dull, Pressure Severity: Moderate Improves with: Reports: Rest (but does not subside) Worsens with: Reports: Movement Context: Reports: Other (at rest) Associated Symptoms: Reports: No Other Symptoms Left Shoulder Pain Score (Numeric/FACES): 2 - Related Data Allergies Allergy/AdvReac Type Severity Reaction Status Date / Time Sulfa (Sulfonamide Allergy Nausea and Verified 10/08/17 07:18 Antibiotics) Vomiting cholesterol pill Allergy Muscle Uncoded 10/08/17 07:18 Aches Home Meds: Home Meds ALPRAZolam [Alprazolam] 0.25 mg PO BEDTIME PRN 08/16/13 [History] Acetaminophen [Tylenol Arthritis Pain] 650 mg PO BID PRN 08/16/13 [History] Losartan [Cozaar] 50 mg PO BID 08/16/13 [History] Oxybutynin 5 mg PO BEDTIME 08/16/13 [History] Psyllium Seed/Aspartame [Metamucil Powder] 17 gm PO DAILY PRN 08/16/13 [History] Ranitidine [Zantac] 150 mg PO BID PRN 01/28/17 [History] Ferrous Sulfate 324 mg PO Q48H 10/08/17 [History] Past Medical History Cardiovascular History: Reports: Bypass, High Cholesterol, Hypertension Other Cardiovascular History: Bypass 1999 Gastrointestinal History: Reports: GERD Genitourinary History: Reports: Urinary Incontinence [employer] History: Reports: Musculoskeletal History: Reports: Arthritis, Other (See Below) Other Musculoskeletal History: Arthritis in knees, suppose to have surgery sometime. Oncologic (Cancer) History: Reports: Breast, Other (See Below) Other Oncologic History: Treated with radiation only. - Infectious Disease History Infectious Disease History: Reports: Other (See Below) Other Infectious Disease History: States she doesn't exactly recall what childhood diseases she had. Denies having had shingles. - Past Surgical History HEENT Surgical History: Reports: Cataract Surgery GI Surgical History: Reports: Appendectomy, Cholecystectomy, Colonoscopy, EGD Female Surgical History: Reports: Hysterectomy Social & Family History - Caffeine Use Caffeine Use: Reports: Tea Other Caffeine Use: States she seldom drinks caffeine. Drinks de-caf coffee and tea on occasion. ED ROS GENERAL - Review of Systems Review Of Systems: See Below (0) Constitutional: Reports: No Symptoms HEENT: Reports: No Symptoms Respiratory: Reports: No Symptoms Cardiovascular: Reports: Chest Pain (left shoulde rpain) Endocrine: Reports: No Symptoms GI/Abdominal: Reports: No Symptoms : Reports: No Symptoms Musculoskeletal: Reports: No Symptoms Skin: Reports: No Symptoms Neurological: Reports: No Symptoms Psychiatric: Reports: No Symptoms Hematologic/Lymphatic: Reports: No Symptoms Immunologic: Reports: No Symptoms ED EXAM, GENERAL - Physical Exam Exam: See Below Exam Limited By: No Limitations General Appearance: Alert, WD/WN, Mild Distress (left shoulder pain) Eye Exam: Bilateral Eye: Normal Inspection Ears: Normal External Exam, Normal Canal Ear Exam: Bilateral Ear: Auricle Normal Nose: Normal Inspection, Normal Mucosa, No Blood Throat/Mouth: Normal Lips, Normal Oropharynx, Normal Voice, No Airway Compromise , Other (poor dentition) Head: Atraumatic, Normocephalic Neck: Normal Inspection, Supple, Non-Tender, Full Range of Motion Respiratory/Chest: No Respiratory Distress, Lungs Clear, Normal Breath Sounds, No Accessory Muscle Use, Chest Non-Tender Cardiovascular: Normal Peripheral Pulses, Regular Rate, Rhythm, No Edema, No Gallop, No JVD, No Murmur, No Rub Peripheral Pulses: 2+: Brachial (R) GI/Abdominal: Normal Bowel Sounds, Soft, Non-Tender, No Organomegaly (Female) Exam: Deferred Rectal (Female) Exam: Deferred Back Exam: Normal Inspection, Full Range of Motion Extremities: Normal Inspection, Normal Range of Motion, Non-Tender, No Pedal Edema, Normal Capillary Refill Neurological: Alert, Oriented, CN II-XII Intact, Normal Cognition Psychiatric: Normal Affect, Normal Mood Skin Exam: Warm, Dry, Intact, Normal Color, No Rash Lymphatic: No Adenopathy EKG INTERPRETATION EKG Date: 10/08/17 Time: 06:45 Rhythm: NSR Rate (Beats/Min): 63 [place]: Normal P-Wave: Present QRS: Normal ST-T: Normal QT: Normal Comparison: NA - No Prior EKG Course - Vital Signs Text/Narrative:: 86 y.o.w.f with CAD, S/P triple CABG 1999, came to the ed after she woke up at 5 am with left shoulder pain, worse with movement. However, pt has still pain at rest, 5/10. Pt received ASA her in the ed and her shoulder pain at rest subsided. Pt has pain at her left shoulder with movement. No N/V/D no diaphoresis. Pt denies trauma. No other acute medical issues. BP 151/51 Pulse 61 O2 sat 99% on RA, RR 14 temp 97.9 Imaging: CXR: Enlarged HS. CTA: Lung fibrosis, patch infiltrate left upper lung Labs: K 3.2 D Dimer 0.79 Troponin 0.017 HGB 10.5 (not new Impression: Hypokalemia, Anemia, left shoulder pain Tx: ASA, Potassium, Toradol i.m.Ice to left shoulder, Reexam: Pt was pain free at rest after ASA was given, Pt was pain free -when shoulder was moved) after Toradol was given. Pt' Daughter was informed about the tx. Pt requested to be D/C'd and the Daughter agreed. Plan: D/C with instructions Last Recorded V/S: Last Vital Signs Temp 36.4 C 10/08/17 11:00 Pulse 83 10/08/17 09:00 Resp 19 10/08/17 11:00 BP 135/55 L 10/08/17 11:00 Pulse Ox 96 10/08/17 11:00 - Orders/Labs/Meds Orders: Active Orders 24 hr Category Date Time Status EKG Documentation Completion [RC] ASDIRECTED Care 10/08/17 07:28 Active Chest 1V Frontal [CR] Stat Exams 10/08/17 06:48 Taken UA W/MICROSCOPIC [URIN] Stat Lab 10/08/17 07:55 Ordered Ice Bag [Ice Therapy] [OM.PC] Routine Oth 10/08/17 07:37 Ordered EKG 12 Lead [EK] Routine Ther 10/08/17 06:49 Ordered Labs: Laboratory Tests 10/08/17 10/08/17 10/08/17 Range/Units 07:00 07:00 07:00 WBC 4.0 L (4.5-12.0) X10-3/uL RBC 3.09 L (3.23-5.20) x10(6)uL Hgb 10.5 L (11.5-15.5) g/dL Hct 30.6 (30.0-51.3) % MCV 99.0 H (80-96) fL MCH 33.9 H (27.7-33.6) pg MCHC 34.2 (32.2-35.4) g/dL RDW 13.5 (11.5-15.5) % Plt Count 197 (125-369) X10(3)uL MPV 9.1 (7.4-10.4) fL Neut % (Auto) 40.8 L (46-82) % Lymph % (Auto) 43.6 H (13-37) % [place] % (Auto) 10.3 (4-12) % Eos % (Auto) 4 (1.0-5.0) % Baso % (Auto) 1 (0-2) % Neut # (Auto) 1.6 (1.6-8.3) # Lymph # (Auto) 1.8 (0.6-5.0) # [place] # (Auto) 0.4 (0.0-1.3) # Eos # (Auto) 0.2 (0.0-0.8) # Baso # (Auto) 0.0 (0.0-0.2) # PT 9.9 (8.7-11.1) INR 1.02 (0.89-1.13) D-Dimer, Quantitative 0.71 H (0.0-0.59) mg/LFEU Sodium (135-145) mmol/L Potassium (3.5-5.3) mmol/L Chloride (100-110) mmol/L Carbon Dioxide (21-32) mmol/L BUN (7-18) mg/dL Creatinine (0.55-1.02) mg/dL Est Cr Clr Drug Dosing Estimated GFR (MDRD) (>60) BUN/Creatinine Ratio (9-20) Glucose (80-116) mg/dL Calcium (8.6-10.2) mg/dL Creatine Kinase (60-160) IU/L Troponin I (<0.017-0.056) ng/mL Urine Color (YELLOW) Urine Appearance (CLEAR) Urine pH (5.0-6.5) Ur Specific [place] (1.010-1.025) Urine Protein (NEGATIVE) mg/dL Urine Glucose (UA) (NEGATIVE) mg/dL Urine Ketones (NEGATIVE) mg/dL Urine Occult Blood (NEGATIVE) Urine Nitrite (NEGATIVE) Urine Bilirubin (NEGATIVE) Urine Urobilinogen (NEGATIVE) mg/dL Ur Leukocyte Esterase (NEGATIVE) Urine WBC (0) Ur Squamous Epith Cells (NS,R,O) Urine Bacteria (NS) 10/08/17 10/08/17 10/08/17 Range/Units 07:00 07:00 07:00 WBC (4.5-12.0) X10-3/uL RBC (3.23-5.20) x10(6)uL Hgb (11.5-15.5) g/dL Hct (30.0-51.3) % MCV (80-96) fL MCH (27.7-33.6) pg MCHC (32.2-35.4) g/dL RDW (11.5-15.5) % Plt Count (125-369) X10(3)uL MPV (7.4-10.4) fL Neut % (Auto) (46-82) % Lymph % (Auto) (13-37) % [place] % (Auto) (4-12) % Eos % (Auto) (1.0-5.0) % Baso % (Auto) (0-2) % Neut # (Auto) (1.6-8.3) # Lymph # (Auto) (0.6-5.0) # [place] # (Auto) (0.0-1.3) # Eos # (Auto) (0.0-0.8) # Baso # (Auto) (0.0-0.2) # PT (8.7-11.1) INR (0.89-1.13) D-Dimer, Quantitative (0.0-0.59) mg/LFEU Sodium 140 (135-145) mmol/L Potassium 3.2 L (3.5-5.3) mmol/L Chloride 106 D (100-110) mmol/L Carbon Dioxide 28 (21-32) mmol/L BUN 16 (7-18) mg/dL Creatinine 0.7 (0.55-1.02) mg/dL Est Cr Clr Drug Dosing TNP Estimated GFR (MDRD) > 60 (>60) BUN/Creatinine Ratio 22.9 H (9-20) Glucose 118 H (80-116) mg/dL Calcium 8.7 (8.6-10.2) mg/dL Creatine Kinase 30 L (60-160) IU/L Troponin I < 0.017 L (<0.017-0.056) ng/mL Urine Color (YELLOW) Urine Appearance (CLEAR) Urine pH (5.0-6.5) Ur Specific [place] (1.010-1.025) Urine Protein (NEGATIVE) mg/dL Urine Glucose (UA) (NEGATIVE) mg/dL Urine Ketones (NEGATIVE) mg/dL Urine Occult Blood (NEGATIVE) Urine Nitrite (NEGATIVE) Urine Bilirubin (NEGATIVE) Urine Urobilinogen (NEGATIVE) mg/dL Ur Leukocyte Esterase (NEGATIVE) Urine WBC (0) Ur Squamous Epith Cells (NS,R,O) Urine Bacteria (NS) 10/08/17 Range/Units 07:55 WBC (4.5-12.0) X10-3/uL RBC (3.23-5.20) x10(6)uL Hgb (11.5-15.5) g/dL Hct (30.0-51.3) % MCV (80-96) fL MCH (27.7-33.6) pg MCHC (32.2-35.4) g/dL RDW (11.5-15.5) % Plt Count (125-369) X10(3)uL MPV (7.4-10.4) fL Neut % (Auto) (46-82) % Lymph % (Auto) (13-37) % [place] % (Auto) (4-12) % Eos % (Auto) (1.0-5.0) % Baso % (Auto) (0-2) % Neut # (Auto) (1.6-8.3) # Lymph # (Auto) (0.6-5.0) # [place] # (Auto) (0.0-1.3) # Eos # (Auto) (0.0-0.8) # Baso # (Auto) (0.0-0.2) # PT (8.7-11.1) INR (0.89-1.13) D-Dimer, Quantitative (0.0-0.59) mg/LFEU Sodium (135-145) mmol/L Potassium (3.5-5.3) mmol/L Chloride (100-110) mmol/L Carbon Dioxide (21-32) mmol/L BUN (7-18) mg/dL Creatinine (0.55-1.02) mg/dL Est Cr Clr Drug Dosing Estimated GFR (MDRD) (>60) BUN/Creatinine Ratio (9-20) Glucose (80-116) mg/dL Calcium (8.6-10.2) mg/dL Creatine Kinase (60-160) IU/L Troponin I (<0.017-0.056) ng/mL Urine Color Yellow (YELLOW) Urine Appearance Clear (CLEAR) Urine pH 7.0 H (5.0-6.5) Ur Specific [place] 1.010 (1.010-1.025) Urine Protein Negative (NEGATIVE) mg/dL Urine Glucose (UA) Normal (NEGATIVE) mg/dL Urine Ketones Negative (NEGATIVE) mg/dL Urine Occult Blood Negative (NEGATIVE) Urine Nitrite Negative (NEGATIVE) Urine Bilirubin Negative (NEGATIVE) Urine Urobilinogen Normal (NEGATIVE) mg/dL Ur Leukocyte Esterase Negative (NEGATIVE) Urine WBC 0-5 (0) Ur Squamous Epith Cells Occasional (NS,R,O) Urine Bacteria Rare H (NS) Meds: Medications Discontinued Medications Generic Name Dose Route Start Last Admin Trade Name Freq PRN Reason Stop Dose Admin Aspirin 324 mg 10/08/17 06:52 10/08/17 06:52 Aspirin PO 10/08/17 06:53 324 mg ONETIME ONE Administration Iopamidol 100 ml 10/08/17 08:39 10/08/17 09:10 Isovue-370 (76%) IV 10/08/17 08:40 88 ml ONETIME ONE Administration Ketorolac Tromethamine 30 mg 10/08/17 07:37 10/08/17 07:45 Toradol IM 10/08/17 07:38 30 mg ONETIME ONE Administration Potassium Chloride 40 meq 10/08/17 07:25 10/08/17 07:31 Klor-Con M20 PO 10/08/17 07:26 40 meq ONETIME ONE Administration Departure - Departure Time of Disposition: 11:03 Disposition: Home, Self-Care 01 Condition: Good Clinical Impression: Atypical chest pain, Shoulder pain, left CAD (coronary artery disease) Qualifiers: Coronary Disease-Associated Artery/Lesion type: [place] artery Referrals: Philippe Dodd MD [Primary Care Provider] - Forms: ED Department Discharge Additional Instructions: Please cont your meds, please f/u with your PMD, come back if your symptoms get worse acutely - My Orders Last 24 Hours: My Active Orders 10/08/17 06:48 Chest 1V Frontal [CR] Stat 10/08/17 06:49 EKG 12 Lead [EK] Routine 10/08/17 07:28 EKG Documentation Completion [RC] ASDIRECTED 10/08/17 07:37 Ice Bag [Ice Therapy] [OM.PC] Routine 10/08/17 07:55 UA W/MICROSCOPIC [URIN] Stat - Assessment/Plan Last 24 Hours: My Active Orders 10/08/17 06:48 Chest 1V Frontal [CR] Stat 10/08/17 06:49 EKG 12 Lead [EK] Routine 10/08/17 07:28 EKG Documentation Completion [RC] ASDIRECTED 10/08/17 07:37 Ice Bag [Ice Therapy] [OM.PC] Routine 10/08/17 07:55 UA W/MICROSCOPIC [URIN] Stat
[2017-10-08] MEDS ORDERED: Aspirin 81 MG Tab.Chew PO ONE (06:52)
[2017-10-08] MEDS ORDERED: Potassium Chloride 20 MEQ Tab.ER PO ONE (07:25)
[2017-10-08] MEDS ORDERED: Ketorolac 30 MG/ML SDV IM ONE (07:37)
[2017-10-08] MEDS ORDERED: Iopamidol 755 Mg/ML 100 ML Bottle IV ONE (08:39)
--- NOTE | 2017-10-08 13:11 | CT ---
INDICATION: Chest pain, elevated D-dimer, shoulder pain, history of left breast Ca with radiation therapy. COMPUTERIZED TOMOGRAPHY ANGIOGRAPHY OF THE CHEST WITH CONTRAST: Spiral 1.25 mm axial sections were obtained through the chest with 88 mL Isovue 370 at 3 mL/ second, with sagittal and coronal reconstructions, 10/08/2017 - no comparisons were available. Total exam DLP = 588.84 mGy-cm. Patchy infiltrates are noted in the lingula and both lower lobes, as well as very minimally in the left upper lobe, and may represent areas of minimal patchy pneumonia. No nodular masses were identified. No gross consolidating pneumonia or effusion was seen. Aortic and coronary artery calcifications are noted. Celiac axis and splenic artery calcifications are noted. No definite mediastinal mass was seen. Renal fascial thickening and some irregularities are compatible with renal cortical scarring. Prominent renal pelvis on the right may represent a mild degree of obstructive uropathy or possibly be on the basis of previous obstruction or simply a normal variant. The gallbladder is absent, compatible with history of its removal. The common bile duct was not enlarged, allowing for post cholecystectomy. The heart was mildly prominent in size and is likely at the upper limits of normal or slightly enlarged. No pericardial effusion was seen. No mediastinal mass was seen. No evidence of pulmonary emboli could be identified. IMPRESSION: 1. No evidence of pulmonary emboli. 2. ASHD with probable mild cardiomegaly or heart at the upper limits of normal in size. 3. Patchy areas of infiltrate, likely representing minimal patchy pneumonia, but should be correlated clinically. Report was called to Dr. Lee at 1220 hours on 10/08/2017. [facility]
--- NOTE | 2017-10-09 08:59 | CR ---
INDICATION: Shoulder pain. CHEST: An AP upright portable view of the chest was obtained 10/08/2017 and compared with 04/19/2013. The heart is enlarged in appearance with post CABG surgery changes suggested - median sternotomy noted. Overlying EKG leads are noted. A definite active infiltrate or effusion was not identified. The aorta is mildly tortuous with calcification in the arch. IMPRESSION: 1. No definite acute process. No gross interval change, except perhaps for slightly increased heart size. 2. ASHD with post median sternotomy and mild cardiomegaly. MTDD
== END 2017-10-08 11:08 | disposition home or self-care (01) ==
LOC: FB.ED 06:36
DX: I25.10 Atherosclerotic heart disease of native coronary artery without angina pectoris (principal); D64.9 Anemia, unspecified; M25.512 Pain in left shoulder; E87.6 Hypokalemia; I10 Essential (primary) hypertension; E78.00 Pure hypercholesterolemia, unspecified; Z79.899 Other long term (current) drug therapy; Z95.1 Presence of aortocoronary bypass graft; Z88.2 Allergy status to sulfonamides; Z88.8 Allergy status to other drugs, medicaments and biological substances
CPT/HCPCS: 36415; 71045; 71275; 80048; 81001; 82550; 84484; 85025; 85379; 85610; 93005; 96372; 99284; A9270; J1885; Q9967